=== PATIENT | male | born 1970 | race Caucasian/White ===

== ENCOUNTER 2017-08-15 09:55 | Outpatient (CLI) | payer OTHER ==
[~2017-08-15 09:55] MED LIST: ACYCLOVIR 400M400 MG PO; AUGMENTIN1 TA2 PO; AVPAK PRIMIDONE50 MG PO; DEXAMETHASONE0.5 MG PO; FAMOTIDINE 20MG20 MG PO; FLEXERIL10 MG PO; GABAPENTIN100 M1 PO; IBUPROFEN 600M600 MG PO; LYRICA 100 MG100 MG PO; METOPROLOL SUCC25 M1 PO; METOPROLOL SUCC25 M2 PO; MICRO-K 10 MEQ10 MEQ PO; PEPCID 20MG TAB20 MG PO; PERCOCET 325 MG1 TA4 PO; PROAIR HFA0.09 MG/AC IH; REVLIMID20 MG PO; XYZAL5 MG PO; ZOFRAN4 MG PO
[2017-08-15 10:28] VITALS: BP 129/79
[2017-08-15 11:00] VITALS: BP 126/80
== END 2017-08-15 11:05 | disposition home or self-care (01) ==
LOC: COP 09:55
DX: C90.01 Multiple myeloma in remission (principal)
CPT/HCPCS: J3489